=== PATIENT | male | born 1945 | race Caucasian/White ===

== ENCOUNTER 2016-09-03 06:06 | Observation (INO) | payer MEDICARE, BC ==
[2016-08-31 09:33] VITALS: BMI 29.2
[2016-09-03] VITALS (29 sets, daily range): BP systolic 135–170; BP diastolic 66–108; PULSE 18–94; RESP 10–20; Ht 167.6 cm; Wt 87.4 kg
[~2016-09-03] VITALS: Ht 167.6 cm; Wt 87.4 kg
[~2016-09-03 06:06] MED LIST: CEFAZOLIN 2 GM/50 ML (PMX) 50 ML IVPB SCH; LACTATED RINGER'S 1,000 ML IV SCH
[2016-09-03] MEDS ORDERED: PROPOFOL 20 ML ONE (06:37)
[2016-09-03] MEDS ORDERED: FENTAnyl 50 MCG/ML VIAL ONE (06:37)
[2016-09-03] MEDS ORDERED: ROCURONIUM 50 MG INJ ONE (06:37)
[2016-09-03] MEDS ORDERED: SUCCINYLCHOLINE CHLORIDE 100 MG/5 ML SYG IV ONE (06:37)
[2016-09-03] MEDS ORDERED: ONDANSETRON 4 MG INJ ONE (06:38)
[2016-09-03] MEDS ORDERED: LABETALOL HCL 20MG INJ ONE (06:38)
[2016-09-03] MEDS: LACTATED RINGER'S 1,000 ML IV* SCH (06:39)
--- NOTE | 2016-09-03 07:04 | HPN ---
Date/Time of Note Date/Time of Note DATE: 09/03/16 TIME: 07:04 Interval H&P Admission Note Pt. seen H&P reviewed: No system changes CULLEN COLON MD Sep 03, 2016 07:04
[2016-09-03] MEDS ORDERED: FEBU80TA PO (07:14)
[2016-09-03] MEDS ORDERED: TRAM50TA2 PO (07:14)
[2016-09-03] MEDS ORDERED: BISO5TAB21 PO (07:14)
[2016-09-03] MEDS ORDERED: AMLO5TAB4 PO (07:14)
[2016-09-03] MEDS ORDERED: ZOLP10TA PO (07:14)
[2016-09-03] MEDS ORDERED: DEXAMETHASONE 4 MG/ML 1 ML INJ ONE (07:31)
[2016-09-03] MEDS ORDERED: BUPIVACAINE 0.25% (MPF) 10 ML 10 ML VIAL ONE (07:39)
[2016-09-03] MEDS ORDERED: POLYMYXIN/BACITRACIN 1L IRRIG ONE (07:39)
[2016-09-03] MEDS ORDERED: GELATIN SIZE 100 SPONGE ONE (07:39)
[2016-09-03] MEDS ORDERED: THROMBIN 5000 UNIT VIAL ONE (07:39)
[2016-09-03] MEDS ORDERED: MEPERIDINE 25 MG INJ IV PRN (08:00)
[2016-09-03] MEDS ORDERED: ONDANSETRON 4 MG INJ IV PRN ×2 (08:00→09:30)
[2016-09-03] MEDS ORDERED: LABETALOL HCL 20MG INJ IV PRN (08:00)
[2016-09-03] MEDS ORDERED: FENTAnyl 50 MCG/ML VIAL IV PRN (08:00)
[2016-09-03] MEDS ORDERED: hydrALAzine 20 MG INJ IV PRN (08:00)
[2016-09-03] MEDS ORDERED: HYDROmorphONE (0.2 MG/ML) 10ML SYG IV PRN ×3 (08:00)
[2016-09-03] MEDS ORDERED: NACL 0.9% 3 ML SYG IV SCH (09:30)
[2016-09-03] MEDS ORDERED: DIAZEPAM 5 MG/ML SYG IM PRN (09:30)
[2016-09-03] MEDS ORDERED: HYDROCODONE/APAP (5/325) TAB PO PRN ×2 (09:30)
[2016-09-03] MEDS ORDERED: TRIMETHOBENZAMIDE 100 MG/ML VIAL IM PRN (09:30)
[2016-09-03] MEDS ORDERED: ACETAMINOPHEN 325 MG TAB PO PRN (09:30)
[2016-09-03] MEDS ORDERED: NALOXONE (0.4 MG/ML) INJ IV PRN (09:30)
[2016-09-03] MEDS ORDERED: BETHANECHOL 25 MG TAB PO PRN (09:30)
[2016-09-03] MEDS ORDERED: DIPHENHYDRAMINE 50 MG CAP PO PRN (09:30)
[2016-09-03] MEDS ORDERED: CEPASTAT LOZENGE MT PRN (09:30)
[2016-09-03] MEDS ORDERED: AL HYDROX/MG HYDROX/SIMETH 30 ML CUP PO PRN (09:30)
[2016-09-03] MEDS ORDERED: PROCHLORPERAZINE 10 MG TAB PO PRN (09:30)
[2016-09-03] MEDS ORDERED: HYDROmorphONE 0.2 MG/ML PCA IV SCH ×2 (09:30→11:30)
[2016-09-03] MEDS ORDERED: ZOLPIDEM 5 MG TAB PO PRN ×2 (09:30→10:30)
[2016-09-03] MEDS ORDERED: HYDROmorphONE 0.2 MG/ML PCA ONE (09:35)
--- NOTE | 2016-09-03 09:35 | OPR ---
Date/Time of Note Date/Time of Note DATE: 09/03/16 TIME: 09:29 Operative Report Preoperative Diagnosis Lumbar spinal stenosis at L4 Postoperative Diagnosis Same Operation/Procedure Performed Central decompressive laminectomy at L4 Partial central decompressive laminectomy at L5 (superiorly) Baxano transforaminal root decompression L4 bilaterally Medial facetectomy and foraminotomy L4-5 bilaterally Cosmetic wound closure (5 cm) Lateral localizing lumbar radiographs (2) Intraoperative nerve monitoring (60 minutes) Surgeon: CULLEN COLON MD dental front office assistant: ÁNGEL AL Anesthesia: general Estimated Blood Loss: 10 - 50 ml's Specimens Spinous process of L4 Grafts/Implants None Complications: None CULLEN COLON MD Sep 03, 2016 09:35
[2016-09-03] MEDS: FENTAnyl 50 MCG/ML VIAL IV PRN ×2 (09:48→10:21)
--- NOTE | 2016-09-03 09:51 | RADRPT ---
PROCEDURE: XR Lumbar Spine one view. CLINICAL INDICATION: Low back pain. Intraoperative. TECHNIQUE: Prone portable cross-table lateral. COMPARISON: No prior studies are available for comparison. FINDINGS: For the purposes of this report, the last apparent true disc level is considered to be L5-S1. Based on this, the posterior needle markers are present at upper L4 level and upper L5 level. IMPRESSION: 1. Intraoperative imaging as described above. RPTAT: QQ .Jax Ross MD, MD Date Time Electronically viewed and signed by .Jax Ross MD, MD on 09/03/2016 09:51 .R/
--- NOTE | 2016-09-03 09:53 | RADRPT ---
PROCEDURE: XR Lumbar Spine one view. CLINICAL INDICATION: Low back pain. Intraoperative. TECHNIQUE: Prone portable cross-table lateral. COMPARISON: No prior studies are available for comparison. FINDINGS: For the purposes of this report, the last apparent true disc level is considered to be L5-S1. Based on this, the posterior surgical instrument is present overlying the L4 spinous process. IMPRESSION: 1. Intraoperative imaging as described above. RPTAT: QQ .Jax Ross MD, MD Date Time Electronically viewed and signed by .Jax Ross MD, on 09/03/2016 09:53 .R/
[2016-09-03] MEDS ORDERED: DIPHENHYDRAMINE 50 MG INJ ONE (10:18)
[2016-09-03] MEDS ORDERED: DIPHENHYDRAMINE 50 MG INJ IV ONE (10:30)
[2016-09-03] MEDS ORDERED: traMADol 50 MG TAB PO PRN (10:30)
[2016-09-03] MEDS: DIAZEPAM 5 MG TAB PO PRN ×2 (11:12→16:29)
[2016-09-03] MEDS: DEXTROSE 5%-0.45% NACL 1,000 ML IV SCH ×3 (11:30→23:37)
[2016-09-03] MEDS: CEFAZOLIN 1 GM/50 ML (PMX) 50 ML IVPB SCH ×2 (13:15→17:42)
--- NOTE | 2016-09-03 13:38 | CONS ---
Date/Time of Note Date/Time of Note DATE: 09/03/16 TIME: 13:24 Assessment/Plan Assessment/Plan Additional Assessment/Plan post lumbar spine surgery post cystectomy and prostatectomy for cancer of bladder and prostae hypertension gout stale health plaqn contiue pre op meds will folloiw with you----thaqnk you Consultation Date/Type/Reason Admit Date/Time Sep 03, 2016 at 06:06 Reason for Consultation medical managemrnt post-op Referring Provider: CULLEN COLON MD Hx of Present Illness post op lumbar spine surgery.history of hypertension ,gout and gouty arthritis , bladder and prostate cancer post cystectomy and prostatectomy heent neg cr;negative gi negative guhas poich post op cystectomy m.s back pain general halth stable Social History Smoking Status: Former smoker Exam/Review of Systems Vital Signs Vitals Vital Signs Date Time Temp Pulse Resp B/P Pulse Ox O2 Delivery O2 Flow Rate FiO2 09/03/16 11:18 22 09/03/16 10:46 86 162/79 100 2.0 09/03/16 09:23 Mask 09/03/16 09:21 97.8 Exam Constitutional: well developed Head: normocephalic Eyes: nl conjunctiva ENMT: nl external ears & nose Neck: supple Respiratory: clear to auscultation Cardiovascular: regular rate and rhythm Gastrointestinal: soft Genitourinary - Male: nl penis, nl scrotum Musculoskeletal: nl extremities to inspection Extremities: normal pulses 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, nl mental status, nl speech, nl strength Lymph: nl lymph nodes Additional Comments scar abdominal from bladder-prostate surgery Results Results 24 hrs Laboratory Tests Test 09/03/16 06:20 Erythrocyte Sedimentation Rate 63 H Medications Medications Current Medications Cefazolin Sodium/ Dextrose 50 ml @ 100 mls/hr OC IVPB Last administered on 09/03 06:40; Admin Dose 100 MLS/HR; Start 09/03/16 at 06:00; Stop 09/03/16 at 19: 00 Lactated Ringer's 1,000 ml @ 20 mls/hr Q24H IV* Last administered on 09/03/16 06:39; Admin Dose 20 MLS/HR; Start 09/03/16 at 06:00 Dextrose/Sodium Chloride (D5-1/2ns) 1,000 ml @ 100 mls/hr Q10H IV Last administered on 09/03/16 11:30; Admin Dose 100 MLS/HR; Start 09/03/16 at 10:00 Acetaminophen/ Hydrocodone Bitart ([place] (5/325)) 1 tab Q4H PRN PO PAIN LEVEL 1 -5; Start 09/03/16 at 09:30; Status Future Hold Acetaminophen/ Hydrocodone Bitart 2 tab 2 tab Q4H PRN PO PAIN LEVEL 6-10; Start 09/03/16 at 09:30; Status Future Hold Cefazolin Sodium (Ancef 1 Gm/50 ml (Pmx)) 50 ml @ 100 mls/hr Q6 IVPB Last administered on 09/03/16 13:15; Admin Dose 100 MLS/HR; Start 09/03/16 at 12:00; Stop 09/04/16 at 06:29 Prochlorperazine (Compazine) 10 mg Q4H PRN PO NAUSEA AND/OR VOMITING; Start 09/03/16 at 09:30 Trimethobenzamide HCl (Tigan) 200 mg Q4H PRN IM NAUSEA AND/OR VOMITING; Start 09/03/16 at 09:30 Ondansetron HCl (Zofran Inj) 4 mg Q6H PRN IV NAUSEA AND/OR VOMITING; Start 09/03 at 09:30 Al Hydrox/Mg Hydrox/Simethicone (Mag-Al Plus) 15 ml Q4H PRN PO CONSTIPATION; Start 09/03/16 at 09:30 Docusate Sodium (Colace) 100 mg BID PO ; Start 09/04/16 at 09:00 Acetaminophen (Tylenol Tab) 650 mg Q4H PRN PO TEMP GREATER THAN 101F OR CORTES; Start 09/03/16 at 09:30 Ascorbic Acid (Vitamin C) 1,000 mg BID PO ; Start 09/04/16 at 09:00 Ferrous Sulfate (Ferrous Sulfate (Ec)) 325 mg TID PO ; Start 09/04/16 at 09:00 Ranitidine HCl (Zantac) 150 mg BID PO ; Start 09/03/16 at 21:00 Diazepam (Valium) 5 mg Q4H PRN PO MUSCLE SPASMS Last administered on 09/03/16 11:12; Admin Dose 5 MG; Start 09/03/16 at 09:30 Diazepam (Valium) 5 mg Q4H PRN IM MUSCLE SPASMS; Start 09/03/16 at 09:30 Phenol (Cepastat Lozenge) 1 lozenge PRN PRN MT SORE THROAT; Start 09/03/16 at 09 :30 Bethanechol Chloride (Urecholine) 25 mg PRN PRN PO UNABLE TO VOID; Start at 09:30 Diphenhydramine HCl (Benadryl) 50 mg Q6H PRN PO PRURITUS; Start 09/03/16 at 09: 30 Naloxone HCl (Narcan) 0.2 mg Q2M PRN IV RR 8 BREATHS/MIN OR LESS; Start at 09:30 Amlodipine Besylate (Norvasc) 5 mg DAILY PO ; Start 09/04/16 at 09:00 Bisoprolol Fumarate (Zebeta) 5 mg DAILY PO ; Start 09/04/16 at 09:00 Febuxostat (Uloric) 80 mg DAILY PO ; Start 09/04/16 at 09:00 Tramadol HCl (Ultram) 50 mg Q6H PRN PO PAIN Last administered on 09/03/16t 11:11 ; Admin Dose 50 MG; Start 09/03/16 at 10:30 Zolpidem Tartrate (Ambien) 10 mg QHS PRN PO INSOMNIA; Start 09/03/16 at 10:30 Hydromorphone HCl (Dilaudid [employer] MARKETER) Q4PCA IV ; Start 09/03/16 at 11:30 DEMARCO MAIN MD Sep 03, 2016 13:37
[2016-09-03] MEDS: RANITIDINE 150 MG TAB PO SCH (20:29)
[2016-09-03] MEDS: DEXTROSE 5%-0.45% NACL 500 ML IV SCH ×2 (23:44→23:46)
[2016-09-04 00:23] VITALS: BP 141/69; RESP 18
[2016-09-04] MEDS: DEXTROSE 5%-0.45% NACL 500 ML IV SCH ×6 (04:25→14:02)
[2016-09-04] MEDS: CEFAZOLIN 1 GM/50 ML (PMX) 50 ML IVPB SCH ×2 (05:14)
[2016-09-04] MEDS: LACTATED RINGER'S 1,000 ML IV* SCH (05:15)
[2016-09-04 07:29] LABS: CALCIUM 7.6 mg/dl (8.4-10.2); CREATININE 1.42 mg/dl (0.61-1.24); POTASSIUM 4.6 mmol/L (3.5-5.1)
[2016-09-04] MEDS ORDERED: BETHANECHOL 25 MG TAB PO PRN (08:00)
--- NOTE | 2016-09-04 08:09 | PN ---
Date/Time of Note Date/Time of Note DATE: 09/04/16 TIME: 08:08 Assessment/Plan Lines/Catheters IV Catheter Type (from Nrsg): Saline Lock Watson in Place (from Nrsg): Yes Subjective 24 Hr Interval Summary The patient is postop day #1 following a decompressive laminectomy at L4 and the upper part of L5. He is resting comfortably in bed. Neurovascular structures are intact distally. His Hemovac output overnight was 5 cc and it was discontinued. His wound is clean and dry and was redressed. His a.m. labs revealed a hemoglobin of 8.4, which is likely a lab error. I am having it repeated. His Watson catheter will be discontinued, and he will be mobilized with physical therapy as tolerated. If he is cleared for discharge by physical therapy, he may be able to go home later today. He was given strict discharge precautions and instructions as well as follow-up arrangements. Exam/Review of Systems Vital Signs Vitals Vital Signs Date Time Temp Pulse Resp B/P Pulse Ox O2 Delivery O2 Flow Rate FiO2 09/04/16 00:23 98.7 83 18 141/69 99 09/03/16 15:00 2.0 09/03/16 09:23 Mask Intake and Output 09/03/16 09/03/16 09/04/16 15:00 23:00 07:00 Intake Total 1350 ml 1350 ml 1540 ml Output Total 475 ml 1215 ml 1005 ml Balance 875 ml 135 ml 535 ml Results Result Diagram: 09/04/16 0417 09/04/16 0417 CULLEN COLON MD Sep 04, 2016 08:09
[2016-09-04 08:37] VITALS: BP 146/73; RESP 20
[2016-09-04] MEDS: FERROUS SULFATE (EC) 325 MG TAB PO SCH ×2 (08:38→12:35)
[2016-09-04] MEDS: RANITIDINE 150 MG TAB PO SCH (08:39)
[2016-09-04] MEDS ORDERED: BISOPROLOL 5 MG TAB PO SCH (09:00)
[2016-09-04] MEDS ORDERED: DOCUSATE SODIUM 100 MG CAP PO SCH (09:00)
[2016-09-04] MEDS ORDERED: ASCORBIC ACID 500 MG TAB PO SCH (09:00)
[2016-09-04] MEDS ORDERED: AMLODIPINE 5 MG TAB PO SCH (09:00)
[2016-09-04] MEDS ORDERED: FEBUXOSTAT 40 MG TABLET PO SCH (09:00)
[2016-09-04 09:21] LABS: ADD SCAN DIFF NO
[2016-09-04 09:22] LABS: BASOPHILS % 0.1 % (0.0-2.0); HEMATOCRIT 24.5 % (42.0-52.0); HEMOGLOBIN 8.2 g/dl (14.0-18.0); LYMPHOCYTES # 1.1 10^3/ul (0.8-2.9); LYMPHOCYTES % 7.5 % (15.0-51.0); MEAN CORPUSCULAR HEMOGLOBIN 30.1 pg (29.0-33.0); MEAN CORPUSCULAR HGB CONC 33.5 g/dl (32.0-37.0); MEAN CORPUSCULAR VOLUME 90.1 fl (82.0-101.0); MEAN PLATELET VOLUME 8.9 fl (7.4-10.4); MONOCYTE # 0.9 10^3/ul (0.3-0.9); MONOCYTES % 6.7 % (0.0-11.0); NEUTROPHIL # 11.9 10^3/ul (1.6-7.5); NEUTROPHILS % 85.3 % (39.0-77.0); PLATELET COUNT 248 10^3/UL (140-415); RED BLOOD COUNT 2.72 10^6/ul (4.70-6.10); RED CELL DISTRIBUTION WIDTH 14.2 % (11.5-14.5)
[2016-09-04 10:09] LABS: CALCIUM 8.2 mg/dl (8.4-10.2); CREATININE 1.3 mg/dl (0.61-1.24); POTASSIUM 4.1 mmol/L (3.5-5.1)
[2016-09-04 10:36] LABS: ADD UMIC YES; UR ASCORBIC ACID NEGATIVE (NEGATIVE); UR BACTERIA FEW /HPF (NONE SEEN); UR BILIRUBIN (Dip) NEGATIVE (NEGATIVE); UR BLOOD (Dip) 2+ mg/dL (NEGATIVE); UR CLARITY SLIGHTLY CLOUDY (CLEAR); UR COLOR YELLOW (YELLOW); UR GLUCOSE (Dip) NEGATIVE (NEGATIVE); UR KETONES (Dip) NEGATIVE (NEGATIVE); UR LEUKOCYTE ESTERASE (Dip) 3+ Leu/ul (NEGATIVE); UR NITRITE (Dip) NEGATIVE (NEGATIVE); UR RBC 52 /HPF (0-5); UR SPECIFIC GRAVITY (Dip) 1.012 (1.003-1.030); UR TOTAL PROTEIN (Dip) 1+ mg/dl (NEGATIVE); UR UROBILINOGEN (Dip) NEGATIVE (NEGATIVE)
--- NOTE | 2016-09-04 10:46 | CONS ---
Date/Time of Note Date/Time of Note DATE: 09/04/16 TIME: 10:42 Assessment/Plan Assessment/Plan Problems: (1) Essential hypertension Status: Chronic Comment: Stable on current regimen. Continue care. (2) Gout Status: Chronic Comment: Stable and noted. 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 Has outpatient urology follow-up as per routine (4) Status post lumbar laminectomy Status: Acute Comment: Postoperative day #1. Patient is up and ambulating. Please note this is an extremely vibrant gentleman with good rehabilitation potential. As per spinal surgery note if cleared by physical therapy agree with able to discharge later today (5) Postoperative anemia due to acute blood loss Status: Acute Comment: Noted. He is already on iron. He does not need transfusion at this time Consultation Date/Type/Reason Admit Date/Time Sep 03, 2016 at 06:06 Initial Consult Date 09/03/2016 Type of Consultation: Internal medicine Reason for Consultation Postop anemia; history of bladder cancer; history of prostate cancer; essential hypertension; gout Referring Provider: CULLEN COLON MD 24 HR Interval Summary Free Text/Dictation Patient reports he is feeling well. No specific complaints. Please see below Constitutional: no complaints (No fevers chills or sweats) Detailed Summary Respiratory: no complaints (No cough no shortness of breath no dyspnea on exertion) Cardiovascular: no complaints (No chest pain no palpitations no orthopnea no PND) Gastrointestinal: no complaints (No nausea vomiting constipation) Genitourinary: no complaints (Stable) Exam/Review of Systems Vital Signs Vitals Vital Signs Date Time Temp Pulse Resp B/P Pulse Ox O2 Delivery O2 Flow Rate FiO2 09/04/16 08:37 97.6 90 20 146/73 98 09/03/16 15:00 2.0 09/03/16 09:23 Mask Intake and Output 09/03/16 09/03/16 09/04/16 15:00 23:00 07:00 Intake Total 1350 ml 1350 ml 1540 ml Output Total 475 ml 1215 ml 1005 ml Balance 875 ml 135 ml 535 ml Exam Constitutional: alert, oriented Neck: non-tender, supple Respiratory: clear to auscultation, normal air movement Cardiovascular: nl pulses, regular rate and rhythm Gastrointestinal: nl liver, spleen, non-tender, soft Results Result Diagram: 09/04/16 0856 09/04/16 0856 Results 24 hrs Laboratory Tests Test 09/04/16 04:17 09/04/16 08:56 09/04/16 09:03 Hemoglobin 8.0 L 8.2 L Hematocrit 25.0 L 24.5 L Sodium Level 135 139 Potassium Level 4.6 4.1 Chloride Level 104 100 Carbon Dioxide Level 25 23 Anion Gap 11 20 #H Blood Urea Nitrogen 24 H 24 H Creatinine 1.42 H 1.30 H Glucose Level 148 131 Calcium Level 7.6 L 8.2 L White Blood Count 14.0 H Red Blood Count 2.72 L Mean Corpuscular Volume 90.1 Mean Corpuscular Hemoglobin 30.1 Mean Corpuscular Hemoglobin Concent 33.5 Red Cell Distribution Width 14.2 Platelet Count 248 Mean Platelet Volume 8.9 Neutrophils % 85.3 H Lymphocytes % 7.5 L Monocytes % 6.7 Eosinophils % 0.0 Basophils % 0.1 Nucleated Red Blood Cells % 0.0 Neutrophils # 11.9 H Lymphocytes # 1.1 Monocytes # 0.9 Eosinophils # 0.0 Basophils # 0.0 Nucleated Red Blood Cells # 0.0 Urine Color YELLOW Urine Clarity SLIGHTLY CLOUDY A Urine pH 6.0 Urine Specific [place] 1.012 Urine Ketones NEGATIVE Urine Nitrite NEGATIVE Urine Bilirubin NEGATIVE Urine Urobilinogen NEGATIVE Urine Leukocyte Esterase 3+ H Urine Microscopic RBC 52 H Urine Microscopic WBC 58 H Urine Bacteria FEW A Urine Hemoglobin 2+ H Urine Glucose NEGATIVE Urine Total Protein 1+ H Medications Medications Current Medications Lactated Ringer's (Lr) 1,000 ml @ 20 mls/hr Q24H IV* Last administered on t 06:39; Admin Dose 20 MLS/HR; Start 09/03/16 at 06:00 Acetaminophen/ Hydrocodone Bitart ([place] (5/325)) 1 tab Q4H PRN PO PAIN LEVEL 1 -5; Start 09/03/16 at 09:30; Status Future hold Acetaminophen/ Hydrocodone Bitart ([place] (5/325)) 2 tab Q4H PRN PO PAIN LEVEL 6 -10 Last administered on 09/04/16 08:41; Admin Dose 2 TAB; Start 09/03/16 at 09: 30; Status Future hold Prochlorperazine (Compazine) 10 mg Q4H PRN PO NAUSEA AND/OR VOMITING; Start 09/03/16 at 09:30 Trimethobenzamide HCl (Tigan) 200 mg Q4H PRN IM NAUSEA AND/OR VOMITING; Start 09/03/16 at 09:30 Ondansetron HCl (Zofran Inj) 4 mg Q6H PRN IV NAUSEA AND/OR VOMITING; Start 09/03 at 09:30 Al Hydrox/Mg Hydrox/Simethicone (Mag-Al Plus) 15 ml Q4H PRN PO CONSTIPATION; Start 09/03/16 at 09:30 Docusate Sodium (Colace) 100 mg BID PO Last administered on 09/04/16 08:38; Admin Dose 100 MG; Start 09/04/16 at 09:00 Acetaminophen (Tylenol Tab) 650 mg Q4H PRN PO TEMP GREATER THAN 101F OR CORTES; Start 09/03/16 at 09:30 Ascorbic Acid (Vitamin C) 1,000 mg BID PO Last administered on 09/04/16 08:39; Admin Dose 1,000 MG; Start 09/04/16 at 09:00 Ferrous Sulfate (Ferrous Sulfate (Ec)) 325 mg TID PO Last administered on 08:38; Admin Dose 325 MG; Start 09/04/16 at 09:00 Ranitidine HCl (Zantac) 150 mg BID PO Last administered on 09/04/16 08:39; Admin Dose 150 MG; Start 09/03/16 at 21:00 Diazepam (Valium) 5 mg Q4H PRN PO MUSCLE SPASMS Last administered on 09/03/16 16:29; Admin Dose 5 MG; Start 09/03/16 at 09:30 Diazepam (Valium) 5 mg Q4H PRN IM MUSCLE SPASMS; Start 09/03/16 at 09:30 Phenol (Cepastat Lozenge) 1 lozenge PRN PRN MT SORE THROAT; Start 09/03/16 at 09 :30 Diphenhydramine HCl (Benadryl) 50 mg Q6H PRN PO PRURITUS; Start 09/03/16 at 09: 30 Naloxone HCl (Narcan) 0.2 mg Q2M PRN IV RR 8 BREATHS/MIN OR LESS; Start at 09:30 Amlodipine Besylate (Norvasc) 5 mg DAILY PO Last administered on 09/04/16 08:39 ; Admin Dose 5 MG; Start 09/04/16 at 09:00 Bisoprolol Fumarate (Zebeta) 5 mg DAILY PO Last administered on 09/04/16 08:38 ; Admin Dose 5 MG; Start 09/04/16 at 09:00 Febuxostat (Uloric) 80 mg DAILY PO Last administered on 09/04/16 08:39; Admin Dose 80 MG; Start 09/04/16 at 09:00 Tramadol HCl (Ultram) 50 mg Q6H PRN PO PAIN Last administered on 09/03/16 11:11 ; Admin Dose 50 MG; Start 09/03/16 at 10:30 Zolpidem Tartrate 10 mg 10 mg QHS PRN PO INSOMNIA Last administered on 20:29; Admin Dose 10 MG; Start 09/03/16 at 10:30 Dextrose/Sodium Chloride 500 ml @ 100 mls/hr Q5H IV Last administered on 05:14; Admin Dose 100 MLS/HR; Start 09/03/16 at 23:45 Dextrose/Sodium Chloride (D5-1/2ns) 500 ml @ 100 mls/hr Q5H IV ; Start 09/03/16 at 23:44 Bethanechol Chloride (Urecholine) 25 mg PRN PRN PO UNABLE TO VOID Last administered on 09/04/16 08:40; Admin Dose 25 MG; Start 09/04/16 at 08:00 DYLON MCDONOUGH MD Sep 04, 2016 10:46
--- NOTE | 2016-09-04 10:56 | PN ---
Date/Time of Note Date/Time of Note DATE: 09/04/16 TIME: 10:49 Assessment/Plan VTE Prophylaxis VTE Prophylaxis Intervention: ambulation Lines/Catheters IV [facility] Saline Lock Urinary Cath still in place: Yes Reason Cath still needed: urinary retention Assessment/Plan Chief Complaint/Hosp Course post op lumbar spine surgery.history of hypertension ,gout and gouty arthritis , bladder and prostate cancer post cystectomy and prostatectomy Problems: Assessment/Plan lab shows anemia etiology will recheck in am .otherwise patient seems quite alert and doing well Subjective 24 Hr Interval Summary Free Text/Dictation patient alert up out of bed no particular problems Constitutional: no complaints Eyes: no complaints ENT: no complaints Respiratory: no complaints Gastrointestinal: no complaints Genitourinary: no complaints Musculoskeletal: back pain Skin: no complaints Neurologic: no complaints Psychological: no complaints Immunologic: no complaints Exam/Review of Systems Vital Signs Vitals Vital Signs Date Time Temp Pulse Resp B/P Pulse Ox O2 Delivery O2 Flow Rate FiO2 09/04/16 08:37 97.6 90 20 146/73 98 09/03/16 15:00 2.0 09/03/16 09:23 Mask Intake and Output 09/03/16 09/03/16 09/04/16 15:00 23:00 07:00 Intake Total 1350 ml 1350 ml 1540 ml Output Total 475 ml 1215 ml 1005 ml Balance 875 ml 135 ml 535 ml Exam Respiratory: clear to auscultation Cardiovascular: regular rate and rhythm Gastrointestinal: soft Skin: nl turgor, No rash or lesions Results Result Diagram: 09/04/16 0856 09/04/16 0856 Results 24 hrs Laboratory Tests Test 09/04/16 04:17 09/04/16 08:56 09/04/16 09:03 Hemoglobin 8.0 L 8.2 L Hematocrit 25.0 L 24.5 L Sodium Level 135 139 Potassium Level 4.6 4.1 Chloride Level 104 100 Carbon Dioxide Level 25 23 Anion Gap 11 20 #H Blood Urea Nitrogen 24 H 24 H Creatinine 1.42 H 1.30 H Glucose Level 148 131 Calcium Level 7.6 L 8.2 L White Blood Count 14.0 H Red Blood Count 2.72 L Mean Corpuscular Volume 90.1 Mean Corpuscular Hemoglobin 30.1 Mean Corpuscular Hemoglobin Concent 33.5 Red Cell Distribution Width 14.2 Platelet Count 248 Mean Platelet Volume 8.9 Neutrophils % 85.3 H Lymphocytes % 7.5 L Monocytes % 6.7 Eosinophils % 0.0 Basophils % 0.1 Nucleated Red Blood Cells % 0.0 Neutrophils # 11.9 H Lymphocytes # 1.1 Monocytes # 0.9 Eosinophils # 0.0 Basophils # 0.0 Nucleated Red Blood Cells # 0.0 Urine Color YELLOW Urine Clarity SLIGHTLY CLOUDY A Urine pH 6.0 Urine Specific [place] 1.012 Urine Ketones NEGATIVE Urine Nitrite NEGATIVE Urine Bilirubin NEGATIVE Urine Urobilinogen NEGATIVE Urine Leukocyte Esterase 3+ H Urine Microscopic RBC 52 H Urine Microscopic WBC 58 H Urine Bacteria FEW A Urine Hemoglobin 2+ H Urine Glucose NEGATIVE Urine Total Protein 1+ H Medications Medications Current Medications Lactated Ringer's (Lr) 1,000 ml @ 20 mls/hr Q24H IV* Last administered on 06:39; Admin Dose 20 MLS/HR; Start 09/03/16 at 06:00 Acetaminophen/ Hydrocodone Bitart ([place] (5/325)) 1 tab Q4H PRN PO PAIN LEVEL 1 -5; Start 09/03/16 at 09:30; Status Future hold Acetaminophen/ Hydrocodone Bitart ([place] (5/325)) 2 tab Q4H PRN PO PAIN LEVEL 6 -10 Last administered on 09/04/16 08:41; Admin Dose 2 TAB; Start 09/03/16 at 09: 30; Status Future hold Prochlorperazine (Compazine) 10 mg Q4H PRN PO NAUSEA AND/OR VOMITING; Start 09/03/16 at 09:30 Trimethobenzamide HCl (Tigan) 200 mg Q4H PRN IM NAUSEA AND/OR VOMITING; Start 09/03/16 at 09:30 Ondansetron HCl (Zofran Inj) 4 mg Q6H PRN IV NAUSEA AND/OR VOMITING; Start 09/03 at 09:30 Al Hydrox/Mg Hydrox/Simethicone (Mag-Al Plus) 15 ml Q4H PRN PO CONSTIPATION; Start 09/03/16 at 09:30 Docusate Sodium (Colace) 100 mg BID PO Last administered on 09/04/16 08:38; Admin Dose 100 MG; Start 09/04/16 at 09:00 Acetaminophen (Tylenol Tab) 650 mg Q4H PRN PO TEMP GREATER THAN 101F OR CORTES; Start 09/03/16 at 09:30 Ascorbic Acid (Vitamin C) 1,000 mg BID PO Last administered on 09/04/16 08:39; Admin Dose 1,000 MG; Start 09/04/16 at 09:00 Ferrous Sulfate (Ferrous Sulfate (Ec)) 325 mg TID PO Last administered on 08:38; Admin Dose 325 MG; Start 09/04/16 at 09:00 Ranitidine HCl (Zantac) 150 mg BID PO Last administered on 09/04/16 08:39; Admin Dose 150 MG; Start 09/03/16 at 21:00 Diazepam (Valium) 5 mg Q4H PRN PO MUSCLE SPASMS Last administered on 09/03/16 16:29; Admin Dose 5 MG; Start 09/03/16 at 09:30 Diazepam (Valium) 5 mg Q4H PRN IM MUSCLE SPASMS; Start 09/03/16 at 09:30 Phenol (Cepastat Lozenge) 1 lozenge PRN PRN MT SORE THROAT; Start 09/03/16 at 09 :30 Diphenhydramine HCl (Benadryl) 50 mg Q6H PRN PO PRURITUS; Start 09/03/16 at 09: 30 Naloxone HCl (Narcan) 0.2 mg Q2M PRN IV RR 8 BREATHS/MIN OR LESS; Start at 09:30 Amlodipine Besylate (Norvasc) 5 mg DAILY PO Last administered on 09/04/16 08:39 ; Admin Dose 5 MG; Start 09/04/16 at 09:00 Bisoprolol Fumarate (Zebeta) 5 mg DAILY PO Last administered on 09/04/16 08:38 ; Admin Dose 5 MG; Start 09/04/16 at 09:00 Febuxostat (Uloric) 80 mg DAILY PO Last administered on 09/04/16 08:39; Admin Dose 80 MG; Start 09/04/16 at 09:00 Tramadol HCl (Ultram) 50 mg Q6H PRN PO PAIN Last administered on 09/03/16 11:11 ; Admin Dose 50 MG; Start 09/03/16 at 10:30 Zolpidem Tartrate 10 mg 10 mg QHS PRN PO INSOMNIA Last administered on 20:29; Admin Dose 10 MG; Start 09/03/16 at 10:30 Dextrose/Sodium Chloride 500 ml @ 100 mls/hr Q5H IV Last administered on 05:14; Admin Dose 100 MLS/HR; Start 09/03/16 at 23:45 Dextrose/Sodium Chloride (D5-1/2ns) 500 ml @ 100 mls/hr Q5H IV ; Start 09/03/16 at 23:44 Bethanechol Chloride (Urecholine) 25 mg PRN PRN PO UNABLE TO VOID Last administered on 09/04/16 08:40; Admin Dose 25 MG; Start 09/04/16 at 08:00 DEMARCO MAIN MD Sep 04, 2016 10:56
[2016-09-04] MEDS ORDERED: BISACODYL 10 MG SUPP PR ONE (12:30)
--- NOTE | 2016-09-27 06:29 | OPR ---
DATE OF OPERATION: 09/03/2016 PREOPERATIVE DIAGNOSIS: Lumbar spinal stenosis at L4-5. POSTOPERATIVE DIAGNOSIS: Lumbar spinal stenosis at L4-5. OPERATION PERFORMED: 1. Central decompression laminectomy at L4. 2. Partial Decompressive laminectomy at L5 (superiorly). 3. Baxano transforaminal root decompression at L4 bilaterally. 4. Medial facetectomy and foraminotomy L4-5 bilaterally. 5. Cosmetic wound closure (5.0 cm). 6. Lateral localized lumbar radiographs (2). 7. Intraoperative nerve monitoring (60 minutes). SURGEON: Partha Pemberton MD BONDED STRUCTURES REPAIRER: Tracy Jensen PA-C ANESTHESIA: General endotracheal by Caleb Brandt MD. ESTIMATED BLOOD LOSS: 30 mL - none replaced. DRAINS: Two medium Hemovac drains employed. COMPLICATIONS: None. HISTORY AND PHYSICAL: This is a 71-year-old male with persistent back and lower extremity complaints which have been unrelieved by extensive conservative management. He has undergone a number of diagnostic studies including an MRI of the lumbar spine which demonstrated severe spinal stenosis at L4-5 with degenerative spondylolisthesis at that level. Treatment options discussed with the patient, and he elected to proceed with surgery. OPERATIVE FINDINGS AT SURGERY: The patient had severe spinal stenosis at L4-5 secondary to degenerative spondylolisthesis and facet joint hypertrophy with ligamentum flavum thickening. The baseline intraoperative nerve monitor revealed decrease in the L4 potentials bilaterally of 40%. These returned to normal at the completion of the surgery. OPERATIVE PROCEDURE: With the patient in the supine position after satisfactory induction of general endotracheal anesthesia by Dr. Brandt, the patient was turned to the Hasting's frame. All pressure points were carefully padded. The back was prepped and draped in the usual sterile fashion. Athrombic pumps were applied to the legs below the knees to prevent venous stasis during and after the procedure and an indwelling Watson catheter was also placed preoperative so to have bladder drainage during and after the procedure. Two spinal needles were placed next to the L4 and L5 spinous processed, lateral x-ray was taken which confirmed the anatomical position. A 5 cm incision at the anterior midline of his spinous process of L4 after the skin was infiltrated with 0.25% Marcaine without epinephrine for postoperative analgesia. Superficial retractors were placed and hemostasis secured with electrocautery. Throughout the procedure, copious amounts of antibacterial irrigation solution was used to periodically irrigate the wound. The fascia was incised to the midline with a hot knife and a bilateral sub periosteal resection carried out at L4-5. Deep retractors were placed and deep hemostasis secured with electrocautery. A second intraoperative radiograph was taken with a Hillary clamp, placement was felt to be the spinous process of L4 and this was confirmed with a second x-ray. A central decompressive laminectomy at L4 was then carried out using a Horsely rongeur, Leksell rongeur, Kerrison punch and then curettes. Ligamentum and flavum was excised with sharp dissection. The operating microscope was then moved into place. A medial facetectomy and foraminotomy was accomplished using small hand osteotome and mallet, Kerrison punch and then curette. At this point there was still some distal foraminal stenosis bilaterally and the Baxano instrumentation was brought onto the field. The Ipsi probe was placed into the left L4 foramen initially, and the guide wire passed. The Neuroprobe was then placed into the foramen to isolate the exiting L4 nerve root. With this having been assured, a 7.5 mm Baxano rasp was inserted into the foramen and multiple reciprocations carried out to enlarge the posterior aspect of the foramen at L4-5 on the left. The instrumentation was then withdrawn and the foramen flooded with 20 mL of antibacterial irrigating solution. Hemostasis was secured with bipolar electrocautery on a low setting. Attention was then turned to the L4 foramen on the right where the identical Baxano procedure was carried out on the right. At the conclusion of the procedure, the anesthesiologist was asked to perform a Valsalva maneuver 40 mmHg, no spinal fluid leakage was noted. The wound was then closed in layers over 2 mini-vac drains using #1 Stratafix sutures on the deep paralumbar musculature, deep fascia to the back, 2-0 Stratafix sutures on the subcutaneous tissue and a 4-0 Vicryl subcuticular closing suture on the skin. Dermabond, sterile compression dressings were applied. The patient tolerated the procedure well, was then returned to the supine position on his bed and extubated by Dr. Brandt. He was transported to the recovery room in satisfactory condition. At the conclusion of the procedure, sponge, instrument and needle counts were all correct. NEED FOR PSYCHOLOGIST PERSONNEL: During this spinal surgical procedure, my per diem physical therapist assistant was used to retract and protect the spinal nerves and dural sac. My per diem physical therapist assistant also employed the suction catheters to evacuate blood from the surgical field to improve visualization of the neural structures. The per diem physical therapist assistant was medically necessary to facilitate the completion of the surgery in a safe and expeditious manner. [facility] [place] regulations, as well as hospital bylaws, preclude the use of non- licensed health care personnel such as operating room technicians, to perform these functions. Throughout the procedure neuro monitoring was carried out by [employer] including EMG, SSEP and MAP monitoring of the L3, L4, L5 and S1 nerve roots bilaterally along with spinal cord potentials. These were interpreted by a neurologist employed by [employer]. Dictated By: Partha Pemberton MD /karina/nathaly /Document#: [id number] CC: Omega Mendoza MD;*EndCC* MTDD
== END 2016-09-04 14:29 | disposition home health service (06) ==
LOC: REC 06:06 → INTOOBSV 06:06 → EDSTATUS 07:00 → MS1 10:58
PROVIDERS: ADMIT Orthopaedic Surgery; ATTEND Orthopaedic Surgery
DX: M43.16 Spondylolisthesis, lumbar region (principal); M51.17 Intervertebral disc disorders with radiculopathy, lumbosacral region; Z85.46 Personal history of malignant neoplasm of prostate; Z90.6 Acquired absence of other parts of urinary tract; Z90.79 Acquired absence of other genital organ(s); I10 Essential (primary) hypertension; M10.9 Gout, unspecified; Z87.891 Personal history of nicotine dependence; E78.5 Hyperlipidemia, unspecified; C67.9 Malignant neoplasm of bladder, unspecified; D62 Acute posthemorrhagic anemia; S39.012A Strain of muscle, fascia and tendon of lower back, initial encounter; X58.XXXA Exposure to other specified factors, initial encounter
CPT/HCPCS: 63047; 69990; 72020; 80048; 81001; 85014; 85018; 85025; 85651; 86850; 86900; 86901; 86920; 87086; 88304; 88311; 96361; 96365; 96375; 97116; 97162; 97530; G0378; J0360; J0690; J1100; J1170; J1200; J2405; J3010; J7042; J7120; J7999; 99217